=== PATIENT | male | born 1995 | race Caucasian/White ===

== ENCOUNTER 2019-07-12 18:53 | Emergency (ER) | payer MEDICAID ==
[~2019-07-12] VITALS: Ht 177.8 cm; Wt 59.0 kg
[~2019-07-12 18:53] MED LIST: IBUP-812 PO; adderal
[2019-07-12 18:57] VITALS: BP 115/69
[2019-07-12] MEDS ORDERED: IBUP-1984 PO (20:16)
[2019-07-12] MEDS ORDERED: ACET-2119 PO (20:16)
== END 2019-07-12 20:20 | disposition home or self-care (01) ==
LOC: ER 18:54
DX: S93.492A Sprain of other ligament of left ankle, initial encounter (principal); Z88.0 Allergy status to penicillin; Z79.899 Other long term (current) drug therapy; V19.9XXA Pedal cyclist (driver) (passenger) injured in unspecified traffic accident, initial encounter; Y93.I9 Activity, other involving external motion; Y92.488 Other paved roadways as the place of occurrence of the external cause; Y99.8 Other external cause status
CPT/HCPCS: 73610; 99283

== ENCOUNTER 2020-11-24 22:31 | Emergency (ER) | payer MEDICAID ==
[2020-11-24 22:43] VITALS: BP 128/74
[2020-11-25] MEDS ORDERED: TETanus/Pertussis (Acell)/Diphther VAC/PF (Tdap-Adult) 0.5ml syringe IMVAC ONE (00:55)
[2020-11-25] MEDS ORDERED: CEPH500C5 PO (01:05)
[2020-11-25] MEDS ORDERED: ceFAZolin 1gm IM kit IM ONE (01:15)
--- NOTE | 2020-11-25 01:29 | NUR ---
Pt requested ancef in left deltoid
--- NOTE | 2020-11-25 01:30 | NUR ---
Pt monitored for abx reaction
== END 2020-11-25 01:47 | disposition home or self-care (01) ==
LOC: ER 22:32
DX: S80.852A Superficial foreign body, left lower leg, initial encounter (principal); F17.200 Nicotine dependence, unspecified, uncomplicated; Z72.89 Other problems related to lifestyle; Z88.0 Allergy status to penicillin; Z79.2 Long term (current) use of antibiotics; Z79.899 Other long term (current) drug therapy; W45.8XXA Other foreign body or object entering through skin, initial encounter; Y93.89 Activity, other specified; Y92.89 Other specified places as the place of occurrence of the external cause; Y99.8 Other external cause status
CPT/HCPCS: 29530; 73610; 90471; 90715; 96372; 99284; J0690; 99283

== ENCOUNTER 2021-07-01 17:00 | Emergency (ER) | payer MEDICAID ==
[~2021-07-01] VITALS: Ht 167.6 cm; Wt 56.0 kg
[~2021-07-01 17:00] MED LIST changes: +CEPH-585 PO
[2021-07-01 17:57] VITALS: BP 120/80
== END 2021-07-01 19:41 | disposition left against medical advice (07) ==
LOC: ER 17:01
DX: R07.9 Chest pain, unspecified (principal); Z53.21 Procedure and treatment not carried out due to patient leaving prior to being seen by health care provider
CPT/HCPCS: 93005